=== PATIENT | female | born 1945 | race Caucasian/White ===

== ENCOUNTER 2017-12-12 13:54 | Outpatient (CLI) | payer MEDICARE, OTHER ==
[~2017-12-12] VITALS: Ht 157.5 cm; Wt 103.0 kg
[~2017-12-12 13:54] MED LIST: ACET1TAB25 PO; ASPI-1264 PO; ATE25T PO; CHOL200035 PO; FISH1CAP15 PO; FURO-150 PO; [UNRECOGNIZED DRUG - CODE] PO
[2017-12-12 14:41] LABS: TOTAL HEMOGLOBIN 15.3 G/dl (12.0-16.0)
[2017-12-12] MEDS ORDERED: albuterol 2.5 MG/3 ML nebule ONE (15:32)
[2017-12-12] MEDS ORDERED: albuterol 2.5 MG/3 ML nebule NEB ONE (15:40)
== END 2017-12-12 23:59 | disposition home or self-care (01) ==
LOC: RT 13:54
PROVIDERS: ATTEND Internal Medicine Pulmonary Disease
DX: J44.9 Chronic obstructive pulmonary disease, unspecified (principal); I10 Essential (primary) hypertension; Z79.82 Long term (current) use of aspirin; Z87.891 Personal history of nicotine dependence
CPT/HCPCS: 85018; 94060; 94727; 94729; 94760